=== PATIENT | female | born 1940 | race Caucasian/White ===

== ENCOUNTER 2017-06-19 11:15 | Inpatient (IN) | payer MEDICARE, MEDICAID ==
[~2017-06-19] VITALS: Ht 160 cm; Wt 55.2 kg
[~2017-06-19 11:15] MED LIST: AMLO10TA; AMLO10TA2 PO; AMOX250C3; CEFD300CAP PO; COUM2.5T17 PO; LISI20TA5; MEGA40SU; NORV5TAB; VICO5TAB; VITAMIN D50000 UNT; [UNRECOGNIZED DRUG - OTHER] IM
[2017-06-19] MEDS ORDERED: LABETALOL HCL 100 MG/20 ML VIAL IV STA ×2 (12:30→13:26)
[2017-06-19 12:50] LABS: ANION GAP 6 MEQ/L (8-16); BLOOD UREA NITROGEN 11 MG/DL (7-18); CALCIUM LEVEL 9.4 MG/DL (8.8-10.2); CARBON DIOXIDE LEVEL 30 MEQ/L (21-32); CHLORIDE LEVEL 105 MEQ/L (98-107); CREATININE FOR GFR 0.65 MG/DL (0.55-1.02); GLOMERULAR FILTRATION RATE > 60.0 (>39); GLUCOSE, FASTING 89 MG/DL (83-110); POTASSIUM SERUM 3.7 MEQ/L (3.5-5.1); SODIUM LEVEL 141 MEQ/L (136-145)
[2017-06-19 12:53] LABS: BASO % 0.5 % (0.0-1.0); EOS # 0.1 K/mm3 (0.0-0.50); LARGE UNSTAINED CELL # 0.1 K/mm3 (0.0-0.4); LARGE UNSTAINED CELL % 1.6 % (0.0-4.0); LYMPH % 23.8 % (24.0-44.0); MEAN CORPUSCULAR HEMOGLOBIN 30.3 pg (27.0-33.0); MEAN CORPUSCULAR HGB CONC 32.8 g/dl (32.0-36.5); MEAN CORPUSCULAR VOLUME 92.4 fl (80.0-96.0); MONO # 0.6 K/mm3 (0.0-0.8); MONO % 7.1 % (0.0-5.0); NEUTROPHILS # 5.2 K/mm3 (1.8-7.7); NEUTROPHILS % 65.9 % (36.0-66.0); PLATELET COUNT, AUTOMATED 218 k/mm3 (150-450); RED CELL DISTRIBUTION WIDTH 13.7 % (11.5-14.5); WHITE BLOOD COUNT 7.8 K/mm3 (4.0-10.0)
--- NOTE | 2017-06-19 12:57 | REP ---
CT Head without contrast HISTORY: Intracranial hemorrhage COMPARISON: 08/21/2015 Areas of decreased attenuation are present in the periventricular white matter. This represents small-vessel ischemic disease. There is no intraparenchymal hemorrhage, acute infarct, mass or midline shift. The ventricular system and cortical sulci as well as subarachnoid space in the posterior fossa are dilated consistent with moderate volume loss. There is no extra cerebral collection. There is no fracture. The visualized sinuses are clear. IMPRESSION: 1. Small vessel ischemic disease. 2. Moderate volume loss. Signed by Dejuan Pichardo MD 06/19/2017 12:48 P
--- NOTE | 2017-06-19 13:44 | REP ---
Chest two views HISTORY: Hypertension Comparison: 06/01/2016 The lungs are hyperinflated. A minimal increase in interstitial markings is present in the lower lobes consistent with chronic interstitial fibrosis. The heart is upper limits of normal in size. The pulmonary vasculature is normal in appearance. The bony structure is intact. IMPRESSION: Bibasilar chronic interstitial fibrosis. Signed by Dejuan Pichardo MD 06/19/2017 01:36 P
[2017-06-19] MEDS ORDERED: PATIENT COMMENT (14:03)
[2017-06-19] MEDS ORDERED: hydrALAZINE INJ 20 MG/ML VIAL IV PRN (14:30)
--- NOTE | 2017-06-19 14:56 | HPEPDOC ---
Medical History and Physical Date of Admission 06/19/17 History and Physical ATTENDING: Dr. Fernandes PCP: Vangie RIDLEY CC: sent from with hypertensive urgency HPI: 76yoF with a past medical history significant for Dementia, HTN who was taken to today by her sons who help to care for her. History is from her son as pt is not able to provide, They had taken her to request a neurology referral for her dementia and thought that would be quicker than going to PCP, which she had not seen in some time. Son states she was on BP meds in the past but had stopped them. She has not been taking any medications at home currently. Son reports that she has not had any new symptoms and has been at her longtime baseline status. Remains fortgetful of recent and immediate past but recalls distant things. Denies vision changes, dizziness, dysarthria, dysphagia, weakness UE/LEs or falls. Denies any fevers, chills, TOVAR, CP, SOB, cough, palpitations, abdominal pain, N/ V/D or changes in bowel or bladder habits. Upon presentation to the hospital the patient was found to have hypertensive urgency, thus the hospitalist team was consulted. PMHx: HTN dementia H/O lacunar infarct 08/05 H/O Left hip fracture h/o L2 fracture H/O fall/unsteady gait PSHX: B/L TIM cholecystectomy SOCHX: Resides in: [facility]. Lives with and 2 sons. Marital Status: Kids: 12 Tobacco use:denies ETOH: denies Illicit Drugs: Denies Advanced directives: none FAMHX: Children: Alive, DM ROS: Pt is not able to provide history. PE: GEN: 76yoF, appears stated age. Well-nourished, well developed. No acute distress. Alert, oriented to person but not time or place. Pleasant, responds occasionally with short answers. HEENT: Normocephalic, atraumatic. Pupils are equal, round, and reactive to light. Extraocular movements are intact. No nystagmus appreciated. Sclera are nonicteric. Conjunctiva without injection. Nose midline. Nasal turbinates without bogginess. EACs both patent BL. TMs both visualized and gaitan with good cone of light, no bulging or erythema. No facial asymmetry. Moist mucous membranes. Dentition fair. Pharynx pink and moist, no cobblestoning. Neck supple , trachea midline. No lymphadenopathy or thyromegaly appreciated. CHEST: Regular rate and rhythm, +S1, +S2. Systolic murmur noted RSB with radiation to carotids. LUNGS: Clear to auscultation bilaterally. No wheezes, rales, or rhonchi. Breathing appears symmetric and easy. Patient is speaking in full sentences. No accessory muscle use. ABD: Round, soft, non-tender, non-distended. +Bowel sounds throughout. No rebound or guarding. No costovertebral angle tenderness. EXT: Pulses 2+ bilaterally dorsalis pedis and radial. No lower extremity edema appreciated. SKIN: [place], dry, warm. No rashes. NEURO: Cranial nerves III-XII are intact. moving all 4 extremities, does not follow commands well. CXR: Bibasilar chronic interstitial fibrosis. CT: Head 1. Small vessel ischemic disease. 2. Moderate volume loss. EKG: SR, first degree AVB, LAD, LVH, STT abn, possible prior septal injury. A&P: HPI: 76yoF with a past medical history significant for Dementia, HTN who was taken to today by her sons who help to care for her. History is from her son as pt is not able to provide, They had taken her to request a neurology referral for her dementia and thought that would be quicker than going to PCP, which she had not seen in some time. Son states she was on BP meds in the past but had stopped them. She has not been taking any medications at home currently. Son reports that she has not had any new symptoms and has been at her longtime baseline status. Remains fortgetful of recent and immediate past but recalls distant things. 1. The patient will be admitted to PCU for at least [address] Fernandes's service. Pt is discussed with Dr Bill. 2. Hypertensive urgency. PCU/TM. Serial CIP/trop. Pt previously on Norvasc/ Chlorthalidone as per records. HR after labetolol 58bpm. Hold further BB. Add back Norvasc 10 mg daily with hold parameters. Add back Chlorthalidone 25 mg daily. IV Hydralazine with hold parameters. 3. Abnormal EKG. Serial CIP/Trop. PCU/TM. 4. Murmur. Request Echo. 5. Dementia. No meds as outpt. Add RPR, Vitamin B12, folate. PFS pending. 6. H/O unsteady gait/fall. PT eval pending. PFS pending. 7. chronic anemia. Baseline 9-10 with previous labs. Add Fe studies/B12/folate. DVT prophylaxis. The patient is a Full code. Vital Signs Vital Signs Date Time Temp Pulse Resp B/P (MAP) Pulse Ox O2 Delivery O2 Flow Rate FiO2 06/19/17 13:47 63 224/100 06/19/17 13:45 16 97 Room Air 06/19/17 11:22 97.1 Laboratory Data Labs 24H Laboratory Tests 2 06/19/17 11:57: White Blood Count 7.8, Red Blood Count 3.84L, Hemoglobin 11.6L, Hematocrit 35.4L , Mean Corpuscular Volume 92.4, Mean Corpuscular Hemoglobin 30.3, Mean Corpuscular Hemoglobin Concent 32.8, Red Cell Distribution Width 13.7, Platelet Count 218, Neutrophils (%) (Auto) 65.9, Lymphocytes (%) (Auto) 23.8L, Monocytes (%) (Auto) 7.1H, Eosinophils (%) (Auto) 1.0, Basophils (%) (Auto) 0.5, Neutrophils # (Auto) 5.2, Lymphocytes # (Auto) 2.0, Monocytes # (Auto) 0.6, Eosinophils # (Auto) 0.1, Basophils # (Auto) 0.0, Large Unclassified Cells % 1.6 , Large Unclassified Cells # 0.1, Anion Gap 6L, Glomerular Filtration Rate > 60.0, Blood Urea Nitrogen 11, Creatinine 0.65, Sodium Level 141, Potassium Level 3.7, Chloride Level 105, Carbon Dioxide Level 30, Calcium Level 9.4, Total Creatine Kinase 61, Creatine Kinase MB 1.7, Creatine Kinase MB Relative Index 2.78, Troponin I < 0.02 CBC/BMP Laboratory Tests 06/19/17 11:57 Red Blood Count 3.84 L, Mean Corpuscular Volume 92.4, Mean Corpuscular Hemoglobin 30.3, Mean Corpuscular Hemoglobin Concent 32.8, Red Cell Distribution Width 13.7, Neutrophils (%) (Auto) 65.9, Lymphocytes (%) (Auto) 23.8 L, Monocytes (%) (Auto) 7.1 H, Eosinophils (%) (Auto) 1.0, Basophils (%) ( Auto) 0.5, Neutrophils # (Auto) 5.2, Lymphocytes # (Auto) 2.0, Monocytes # (Auto ) 0.6, Eosinophils # (Auto) 0.1, Basophils # (Auto) 0.0, Calcium Level 9.4, Total Creatine Kinase 61 Home Medications Miscellaneous Medications [Patient Comment] UNABLE TO VERIFY ANY MEDICATIONS WITH PATIENT. NO FAMILY WITH HER AT THIS TIME, PHARMACY HAS NOTHING ON FILE FOR HER Allergies Coded Allergies: No Known Drug Allergy (Verified Allergy, Unknown, 01/24/13) GME ATTESTATION GME ATTESTATION My preceptor for this patient encounter was physically present in the building during the encounter and was fully available. As needed, all aspects of the patient interview, examination, medical decision making process, and medical care plan development were reviewed and approved by the preceptor. Preceptor is aware and concurs with the plan as stated in the body of this note and will attest to such by his/her cosignature. ATTENDING NOTE I have both independently examined this patient as well as reviewed the note. I have discussed in detail with the resident the findings and plan of treatment as documented in the note. I will continue to follow the patient and offer further guidance to the patients care as necessary during this hospital stay. Marietta Wright MD Jun 19, 2017 14:56 JOLENE BILL MD Jun 20, 2017 11:53
[2017-06-19] MEDS ORDERED: amLODIPine 5 MG TAB PO ONE (15:00)
[2017-06-19] MEDS ORDERED: CHLORTHALIDONE 12.5MG PER 1/2 TABLET PO ONE (15:00)
[2017-06-19] MEDS ORDERED: CHLORTHALIDONE 25 MG TAB PO ONE (15:00)
[2017-06-19] MEDS: CHLORTHALIDONE 25 MG TAB PO SCH (15:10)
[2017-06-19] MEDS: amLODIPine 10 MG TAB PO SCH (15:10)
[2017-06-19 15:47] LABS: FERRITIN 26 NG/ML (8-252); TOTAL IRON BINDING CAPACITY 293 UG/DL (250-450)
[2017-06-19 15:54] LABS: VITAMIN B12 LEVEL 491 PG/ML
[2017-06-19 15:55] LABS: FOLATE 16.6 NG/ML
[2017-06-19 17:28] VITALS: BP 190/74
[2017-06-19 19:50] VITALS: BP 142/78
[2017-06-20 00:26] VITALS: BP 172/80
[2017-06-20] MEDS ORDERED: SLF 3 ML SYR IV PRN (00:45)
[2017-06-20 03:56] VITALS: BP 166/89
[2017-06-20] MEDS: SLF 3 ML SYR IV SCH ×2 (04:14→13:55)
[2017-06-20 05:46] LABS: MEAN CORPUSCULAR HEMOGLOBIN 30.6 pg (27.0-33.0); MEAN CORPUSCULAR HGB CONC 33.2 g/dl (32.0-36.5); MEAN CORPUSCULAR VOLUME 92.2 fl (80.0-96.0); RED CELL DISTRIBUTION WIDTH 13.7 % (11.5-14.5); WHITE BLOOD COUNT 7.1 K/mm3 (4.0-10.0)
[2017-06-20 06:02] LABS: ALBUMIN 3.2 GM/DL (3.2-5.2); ALBUMIN/GLOBULIN RATIO 0.82 (1.00-1.93); ALKALINE PHOSPHATASE 93 U/L (45-117); ALT/SGPT 12 U/L (12-78); ANION GAP 9 MEQ/L (8-16); AST/SGOT 13 U/L (15-37); BILIRUBIN,TOTAL 0.4 MG/DL (0.2-1.0); BLOOD UREA NITROGEN 12 MG/DL (7-18); CALCIUM LEVEL 8.4 MG/DL (8.8-10.2); CARBON DIOXIDE LEVEL 28 MEQ/L (21-32); CHLORIDE LEVEL 105 MEQ/L (98-107); CREATININE FOR GFR 0.62 MG/DL (0.55-1.02); GLOMERULAR FILTRATION RATE > 60.0 (>39); GLUCOSE, FASTING 105 MG/DL (83-110); POTASSIUM SERUM 3.5 MEQ/L (3.5-5.1); SODIUM LEVEL 142 MEQ/L (136-145); TOTAL PROTEIN 7.1 GM/DL (6.4-8.2)
[2017-06-20 07:30] VITALS: BP 164/78
[2017-06-20] MEDS: amLODIPine 10 MG TAB PO SCH (09:48)
[2017-06-20] MEDS: CHLORTHALIDONE 25 MG TAB PO SCH (09:48)
--- NOTE | 2017-06-20 10:25 | IPNPDOC ---
Subjective Date Seen The patient was seen on 06/20/17. Subjective Chief Complaint/HPI The patient is a 76-year-old female admitted with a reason for visit of Hypertensive Urgency. Events since last encounter Patient without complaints - poor historian due to advanced dementia Constitutional: Denies: Chills, Fever Pulmonary: Denies: Dyspnea, Cough Cardiovascular: Denies: Chest Pain, Palpitations Gastrointestinal: Denies: Nausea, Vomiting, Abdominal Pain, Diarrhea, Constipation Objective Physical Examination General Exam: Positive: Alert (confused), No Acute Distress Chest Exam: Positive: Clear to auscultation, Normal air movement Heart Exam: Positive: Rate Normal, Regular Rhythm, Murmurs (PHILLY radiating to carotids) Abdomen Exam: Positive: Normal bowel sounds, Soft, Negative: Tenderness Assessment /Plan Problems (1) Hypertensive urgency Status: Acute Response to Treatment: Improving Problem Text: BP improving with Norvasc 10 mg daily , Chlorthalidone 25 mg daily and Hydralazine IV prn SBP > 180 HR in 70s s/p Lopressor IV on admission. Start Metoprolol 25 q 6H with hold parameters (2) Dementia Status: Chronic Response to Treatment: Stable Problem Text: Patient was seen in 10/2015 with normal thyroid, RPR and B12 at that time. MRI ordered then, but never done and patient never followed up in office again CT here showed small vessel disease and age related volume loss (3) Murmur, cardiac Status: Chronic Problem Text: Echo ordered 10/2015 but never done Re-ordered here - sounds like aortic stenosis Plan/VTE VTE Prophylaxis Ordered?: Yes (start Heparin SQ) Plan Therapy: PT, OT Disposition I discussed with PFS my concerns regarding her dispo plan - she was apparently living with son and at home, but son did not bring her back to my office for f/u since 10/2015 and has not been giving her BP meds therefore causing her hypertensive urgency - this is the second time this has occured. VS, I&O, 24H, Fishbone Vital Signs/I&O Vital Signs Date Time Temp Pulse Resp B/P (MAP) Pulse Ox O2 Delivery O2 Flow Rate FiO2 06/20/17 09:48 72 164/78 06/20/17 07:30 97.6 20 96 Room Air I&O- Last 24 Hours up to 6 AM 06/20/17 06:00 Intake Total 300 ml Output Total 775 ml Balance -475 ml Laboratory Data 24H LABS Laboratory Tests 2 06/19/17 11:57: White Blood Count 7.8, Red Blood Count 3.84L, Hemoglobin 11.6L, Hematocrit 35.4L , Mean Corpuscular Volume 92.4, Mean Corpuscular Hemoglobin 30.3, Mean Corpuscular Hemoglobin Concent 32.8, Red Cell Distribution Width 13.7, Platelet Count 218, Neutrophils (%) (Auto) 65.9, Lymphocytes (%) (Auto) 23.8L, Monocytes (%) (Auto) 7.1H, Eosinophils (%) (Auto) 1.0, Basophils (%) (Auto) 0.5, Neutrophils # (Auto) 5.2, Lymphocytes # (Auto) 2.0, Monocytes # (Auto) 0.6, Eosinophils # (Auto) 0.1, Basophils # (Auto) 0.0, Large Unclassified Cells % 1.6 , Large Unclassified Cells # 0.1, Anion Gap 6L, Glomerular Filtration Rate > 60.0, Blood Urea Nitrogen 11, Creatinine 0.65, Sodium Level 141, Potassium Level 3.7, Chloride Level 105, Carbon Dioxide Level 30, Calcium Level 9.4, Total Creatine Kinase 61, Iron Level 41L, Total Iron Binding Capacity 293, Transferrin % Saturation 14.0, Ferritin 26, Creatine Kinase MB 1.7, Creatine Kinase MB Relative Index 2.78, Troponin I < 0.02, Vitamin B12 Level 491, Folate 16.6, Thyroid Stimulating Hormone (TSH) 1.930 06/19/17 15:36: Urine Appearance CLEAR, Urine Color YELLOW, Urine pH 7.0, Urine Specific [place] 1.006, Urine Protein NEGATIVE, Urine Glucose (UA) NEGATIVE, Urine Ketones NEGATIVE, Urine Urobilinogen 0.2, Urine Bilirubin NEGATIVE, Urine Leukocyte Esterase NEGATIVE, Urine Blood 1+H, Urine Nitrite NEGATIVE, Urine WBC (Auto) 3, Urine RBC (Auto) 3, Urine Hyaline Casts (Auto) 0, Urine Bacteria (Auto ) NEGATIVE, Urine Squamous Epithelial Cells 1, Urine Mucus (Auto) SMALL, Urine Sperm (Auto) 06/19/17 18:00: Total Creatine Kinase 70, Creatine Kinase MB 1.6, Creatine Kinase MB Relative Index 2.28, Troponin I < 0.02 06/20/17 02:08: Total Creatine Kinase 93, Creatine Kinase MB 1.8, Creatine Kinase MB Relative Index 1.93, Troponin I < 0.02 06/20/17 04:41: Anion Gap 9, Glomerular Filtration Rate > 60.0, Blood Urea Nitrogen 12, Creatinine 0.62, Sodium Level 142, Potassium Level 3.5, Chloride Level 105, Carbon Dioxide Level 28, Calcium Level 8.4L, Aspartate Amino Transf (AST/SGOT) 13L, Alanine Aminotransferase (ALT/SGPT) 12, Alkaline Phosphatase 93, Total Bilirubin 0.4, Total Protein 7.1, Albumin 3.2, Albumin/Globulin Ratio 0.82L 06/20/17 09:51: CBC/BMP Laboratory Tests 06/19/17 11:57 Red Blood Count 3.84 L, Mean Corpuscular Volume 92.4, Mean Corpuscular Hemoglobin 30.3, Mean Corpuscular Hemoglobin Concent 32.8, Red Cell Distribution Width 13.7, Neutrophils (%) (Auto) 65.9, Lymphocytes (%) (Auto) 23.8 L, Monocytes (%) (Auto) 7.1 H, Eosinophils (%) (Auto) 1.0, Basophils (%) ( Auto) 0.5, Neutrophils # (Auto) 5.2, Lymphocytes # (Auto) 2.0, Monocytes # (Auto ) 0.6, Eosinophils # (Auto) 0.1, Basophils # (Auto) 0.0, Calcium Level 9.4, Total Creatine Kinase 61 06/20/17 04:41 Red Blood Count 3.73 L, Mean Corpuscular Volume 92.2, Mean Corpuscular Hemoglobin 30.6, Mean Corpuscular Hemoglobin Concent 33.2, Red Cell Distribution Width 13.7, Calcium Level 8.4 L, Aspartate Amino Transf (AST/SGOT) 13 L, Alanine Aminotransferase (ALT/SGPT) 12, Alkaline Phosphatase 93, Total Bilirubin 0.4, Total Protein 7.1, Albumin 3.2 Microbiology Microbiology 06/19/17 Urine Culture - Final, Complete NELSON TAYLOR PA-C Jun 20, 2017 10:25
[2017-06-20 12:00] VITALS: BP 180/82
[2017-06-20] MEDS: METOPROLOL TART 25 MG TABLET PO SCH ×2 (12:11→17:22)
[2017-06-20 16:00] VITALS: BP 179/81
[2017-06-20 19:58] VITALS: BP 175/77
--- NOTE | 2017-06-20 23:08 | ECHO ---
DATE OF PROCEDURE: 06/20/2017 REFERRING PHYSICIAN: Alexandra Posadas MD INDICATION: Heart murmur. HEIGHT: 160 cm WEIGHT: 64 kg 2D MEASUREMENTS: Left atrium: 3.6 cm Aortic root: 3.0 cm Ventricular septum: 1.21 cm Posterior wall: 1.16 cm Left ventricle diastole: 3.7 cm LVOT: 2.3 cm Inferior vena cava: 1.1 cm DOPPLER MEASUREMENTS: Trace aortic regurgitation. No aortic stenosis. Aortic valve velocity: 233 cm/s LVOT velocity: 140 cm/s LVOT VTI: 28.0 cm Very mild mitral regurgitation. Mitral E velocity: 55.3 cm/s Mitral A velocity: 100 cm/s MITRAL ANNULAR TISSUE DOPPLER: E prime septal: 3.8 cm/s E prime lateral: 5.4 cm/s Pulmonary arterial systolic pressure 36 mmHg by pulmonary acceleration time method. DESCRIPTION: Rhythm was sinus tachycardia. Image quality was fair. No pericardial effusion. Images were obtained from the supine position. This is a 2D, M-mode, color flow Doppler and pulse wave Doppler examination that included mitral annular tissue Doppler. CONCLUSIONS: 1. 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 No aortic stenosis. Trace aortic regurgitation. 2. Normal left ventricle size and systolic function. Left ventricle (LV) wall thickness is near or at the upper limits normal. No regional LV wall motion abnormalities. Normal LV systolic function. Left ventricular ejection fraction (LVEF) 70% by visual estimate. Grade 1 LV diastolic dysfunction (impaired relaxation filling pattern). 3. 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 4. Suggestive of mild elevation of pulmonary artery systolic pressure.
[2017-06-21 00:03] VITALS: BP 140/80
[2017-06-21] MEDS: METOPROLOL TART 25 MG TABLET PO SCH ×2 (00:18→05:51)
[2017-06-21] MEDS: SLF 3 ML SYR IV SCH ×2 (00:18→05:51)
[2017-06-21 05:56] LABS: MEAN CORPUSCULAR HEMOGLOBIN 30.8 pg (27.0-33.0); MEAN CORPUSCULAR HGB CONC 33.4 g/dl (32.0-36.5); MEAN CORPUSCULAR VOLUME 92.4 fl (80.0-96.0); RED CELL DISTRIBUTION WIDTH 13.4 % (11.5-14.5); WHITE BLOOD COUNT 9.6 K/mm3 (4.0-10.0)
[2017-06-21 06:24] LABS: ALBUMIN 3.4 GM/DL (3.2-5.2); ALBUMIN/GLOBULIN RATIO 0.83 (1.00-1.93); ALKALINE PHOSPHATASE 96 U/L (45-117); ALT/SGPT 18 U/L (12-78); ANION GAP 9 MEQ/L (8-16); AST/SGOT 19 U/L (15-37); BILIRUBIN,TOTAL 0.5 MG/DL (0.2-1.0); BLOOD UREA NITROGEN 20 MG/DL (7-18); CALCIUM LEVEL 8.6 MG/DL (8.8-10.2); CARBON DIOXIDE LEVEL 29 MEQ/L (21-32); CHLORIDE LEVEL 100 MEQ/L (98-107); CREATININE FOR GFR 0.76 MG/DL (0.55-1.02); GLOMERULAR FILTRATION RATE > 60.0 (>39); GLUCOSE, FASTING 99 MG/DL (83-110); POTASSIUM SERUM 3.5 MEQ/L (3.5-5.1); SODIUM LEVEL 138 MEQ/L (136-145); TOTAL PROTEIN 7.5 GM/DL (6.4-8.2)
--- NOTE | 2017-06-21 08:55 | ECGEPIP ---
Stationary ECG Study [facility] - ED Test Date: 2017-06-19 Pat Name: ABAD CACERES Department: Room: - Gender: F Tile Mason: rn : 1940 Requested By: PRIYA Escobedo Order Number: [id number] Reading MD: Cheryle Luna Measurements Intervals [place] Cbc Base Rate: 73 P: 75 WI: 215 QRS: -39 QRSD: 91 T: 85 QT: 386 QTc: 428 Interpretive Statements SINUS RHYTHM WITH FIRST DEGREE AV BLOCK MARKED LEFT AXIS DEVIATION LEFT VENTRICULAR HYPERTROPHY AND ST-T CHANGE POSSIBLE SEPTAL MYOCARDIAL INFARCTION, OF INDETERMINATE AGE DECREASED RATE 06/01/16 Electronically Signed On 06-21-2017 8:55:41 EDT by Cheryle Luna
[2017-06-21] MEDS: CHLORTHALIDONE 25 MG TAB PO SCH (08:58)
[2017-06-21] MEDS: amLODIPine 10 MG TAB PO SCH (08:59)
--- NOTE | 2017-06-21 10:33 | IPNPDOC ---
Subjective Date Seen The patient was seen on 06/21/17. Subjective Chief Complaint/HPI The patient is a 76-year-old female admitted with a reason for visit of Hypertensive Urgency. Events since last encounter Per nursing, no issues or concerns Constitutional: Denies: Chills, Fever Pulmonary: Denies: Dyspnea Cardiovascular: Denies: Chest Pain Gastrointestinal: Denies: Nausea, Vomiting, Abdominal Pain, Diarrhea, Constipation Objective Physical Examination General Exam: Positive: Alert (confused), No Acute Distress Chest Exam: Positive: Clear to auscultation, Normal air movement Heart Exam: Positive: Rate Normal, Regular Rhythm, Murmurs (PHILLY radiating to carotids) Abdomen Exam: Positive: Normal bowel sounds, Soft, Negative: Tenderness Neuro Exam: Positive: Other (Face is symmetric and expressive. Slight ? pill- rolling tremor on left hand with cogwheeling. Gait is normal without shuffling) Assessment /Plan Problems (1) Hypertensive urgency Status: Acute Response to Treatment: Improving Problem Text: BP improving with Norvasc 10 mg daily , Chlorthalidone 25 mg daily, Metoprolol 25 q 6h Echo with mild LVH without dilatation, EF 70%. Moderate aortic sclerosis without stenosis Switch Metoprolol to Lisinopril (2) Dementia Status: Chronic Response to Treatment: Stable Problem Text: Patient was seen in 10/2015 with normal thyroid, RPR and B12 at that time. MRI ordered then, but never done and patient never followed up in office again CT here showed small vessel disease and age related volume loss May have some Parkinson's based on slight pill rolling and cogwheeling, but apparently ambulates without difficulty (3) Murmur, cardiac Status: Chronic Problem Text: Echo ordered 10/2015 but never done Re-ordered here - showed aortic sclerosis without stenosis Plan/VTE VTE Prophylaxis Ordered?: Yes (start Heparin SQ) Plan Therapy: PT, OT Disposition SNF in am VS, I&O, 24H, Fishbone Vital Signs/I&O Vital Signs Date Time Temp Pulse Resp B/P (MAP) Pulse Ox O2 Delivery O2 Flow Rate FiO2 06/21/17 08:59 69 153/70 06/21/17 02:05 Room Air 06/21/17 00:03 99.0 18 97 I&O- Last 24 Hours up to 6 AM 06/21/17 06:00 Intake Total 750 ml Output Total 400 ml Balance 350 ml Laboratory Data 24H LABS Laboratory Tests 2 8/31/17 05:35: Anion Gap 9, Glomerular Filtration Rate > 60.0, Blood Urea Nitrogen 20#H, Creatinine 0.76, Sodium Level 138, Potassium Level 3.5, Chloride Level 100, Carbon Dioxide Level 29, Calcium Level 8.6L, Aspartate Amino Transf (AST/SGOT) 19, Alanine Aminotransferase (ALT/SGPT) 18, Alkaline Phosphatase 96, Total Bilirubin 0.5, Total Protein 7.5, Albumin 3.4, Albumin/Globulin Ratio 0.83L CBC/BMP Laboratory Tests 06/21/17 05:35 Red Blood Count 3.95 L, Mean Corpuscular Volume 92.4, Mean Corpuscular Hemoglobin 30.8, Mean Corpuscular Hemoglobin Concent 33.4, Red Cell Distribution Width 13.4, Calcium Level 8.6 L, Aspartate Amino Transf (AST/SGOT) 19, Alanine Aminotransferase (ALT/SGPT) 18, Alkaline Phosphatase 96, Total Bilirubin 0.5, Total Protein 7.5, Albumin 3.4 Microbiology Microbiology 06/19/17 Urine Culture - Final, Complete NELSON TAYLOR PA-C Jun 21, 2017 10:33
[2017-06-21] MEDS: LISINOPRIL 20 MG TAB PO SCH (11:17)
[2017-06-21 22:00] VITALS: BP 144/66
[2017-06-22 06:00] VITALS: BP 155/70
[2017-06-22] MEDS: CHLORTHALIDONE 25 MG TAB PO SCH (08:12)
[2017-06-22] MEDS: amLODIPine 10 MG TAB PO SCH (08:12)
[2017-06-22] MEDS: LISINOPRIL 20 MG TAB PO SCH (08:12)
[2017-06-22] MEDS: ENOXAPARIN 40 MG/0.4 ML SYRINGE (J1650) SC SCH (08:13)
[2017-06-22 14:00] VITALS: BP 136/64
[2017-06-22 22:00] VITALS: BP 135/64
[2017-06-23 06:00] VITALS: BP 152/67
[2017-06-23] MEDS: ENOXAPARIN 40 MG/0.4 ML SYRINGE (J1650) SC SCH (10:01)
[2017-06-23] MEDS: CHLORTHALIDONE 25 MG TAB PO SCH (10:02)
[2017-06-23] MEDS: amLODIPine 10 MG TAB PO SCH (10:02)
[2017-06-23] MEDS: LISINOPRIL 20 MG TAB PO SCH (10:03)
[2017-06-23 22:00] VITALS: BP 150/78
[2017-06-24 06:00] VITALS: BP 160/72
[2017-06-24] MEDS: LISINOPRIL 20 MG TAB PO SCH (09:14)
[2017-06-24] MEDS: amLODIPine 10 MG TAB PO SCH (09:15)
[2017-06-24] MEDS: CHLORTHALIDONE 25 MG TAB PO SCH (09:15)
[2017-06-24] MEDS: ENOXAPARIN 40 MG/0.4 ML SYRINGE (J1650) SC SCH (09:15)
[2017-06-25 06:00] VITALS: BP 150/74
[2017-06-25] MEDS: ENOXAPARIN 40 MG/0.4 ML SYRINGE (J1650) SC SCH (10:13)
[2017-06-25] MEDS: CHLORTHALIDONE 25 MG TAB PO SCH (10:13)
[2017-06-25] MEDS: amLODIPine 10 MG TAB PO SCH (10:14)
[2017-06-25] MEDS: LISINOPRIL 20 MG TAB PO SCH (10:14)
[2017-06-26 06:00] VITALS: BP 142/78
[2017-06-26] MEDS: ENOXAPARIN 40 MG/0.4 ML SYRINGE (J1650) SC SCH (08:53)
[2017-06-26] MEDS: amLODIPine 10 MG TAB PO SCH (08:54)
[2017-06-26] MEDS: LISINOPRIL 20 MG TAB PO SCH (08:54)
[2017-06-26] MEDS: CHLORTHALIDONE 25 MG TAB PO SCH (08:54)
[2017-06-27 06:00] VITALS: BP 155/69
[2017-06-27] MEDS: LISINOPRIL 20 MG TAB PO SCH (09:38)
[2017-06-27] MEDS: CHLORTHALIDONE 25 MG TAB PO SCH (09:38)
[2017-06-27] MEDS: ENOXAPARIN 40 MG/0.4 ML SYRINGE (J1650) SC SCH (09:39)
[2017-06-27] MEDS: amLODIPine 10 MG TAB PO SCH (09:42)
[2017-06-27 14:00] VITALS: BP 138/65
[2017-06-28 06:00] VITALS: BP 141/74
[2017-06-28] MEDS: amLODIPine 10 MG TAB PO SCH (08:23)
[2017-06-28] MEDS: ENOXAPARIN 40 MG/0.4 ML SYRINGE (J1650) SC SCH (08:23)
[2017-06-28] MEDS: LISINOPRIL 20 MG TAB PO SCH (08:23)
[2017-06-28] MEDS: CHLORTHALIDONE 25 MG TAB PO SCH (08:23)
[2017-06-29 06:00] VITALS: BP 132/88
[2017-06-29] MEDS: amLODIPine 10 MG TAB PO SCH (09:09)
[2017-06-29] MEDS: CHLORTHALIDONE 25 MG TAB PO SCH (09:09)
[2017-06-29] MEDS: LISINOPRIL 20 MG TAB PO SCH (09:09)
[2017-06-29] MEDS: ENOXAPARIN 40 MG/0.4 ML SYRINGE (J1650) SC SCH (09:10)
--- NOTE | 2017-06-29 11:09 | IPNPDOC ---
Subjective Date Seen The patient was seen on 06/29/17. Subjective Chief Complaint/HPI The patient is a 76-year-old female admitted with a reason for visit of Hypertensive Urgency. Events since last encounter No new issues or concerns per nursing Constitutional: Denies: Chills, Fever Pulmonary: Denies: Dyspnea Cardiovascular: Denies: Chest Pain Gastrointestinal: Denies: Nausea, Vomiting, Abdominal Pain, Diarrhea, Constipation Objective Physical Examination General Exam: Positive: Alert (confused - trying to stand up in chair and pull off chair sensor), No Acute Distress Chest Exam: Positive: Clear to auscultation, Normal air movement Heart Exam: Positive: Rate Normal, Regular Rhythm, Murmurs (PHILLY radiating to carotids) Abdomen Exam: Positive: Normal bowel sounds, Soft, Negative: Tenderness Neuro Exam: Positive: Other (Face is symmetric and expressive. Slight ? pill- rolling tremor on left hand with cogwheeling. Gait is normal without shuffling) Assessment /Plan Problems (1) Hypertensive urgency Status: Resolved Response to Treatment: Improving Problem Text: 06/29 - BP stable on current regimen Norvasc 10 mg daily , Chlorthalidone 25 mg daily, Lisinopril 20 mg daily Echo with mild LVH without dilatation, EF 70%. Moderate aortic sclerosis without stenosis (2) Dementia Status: Chronic Response to Treatment: Stable Problem Text: Patient was seen in 10/2015 with normal thyroid, RPR and B12 at that time. MRI ordered then, but never done and patient never followed up in office again CT here showed small vessel disease and age related volume loss May have some Parkinson's based on slight pill rolling and cogwheeling, but apparently ambulates without difficulty (3) Murmur, cardiac Status: Chronic Problem Text: Echo ordered 10/2015 but never done Re-ordered here - showed aortic sclerosis without stenosis Plan/VTE VTE Prophylaxis Ordered?: Yes (start Heparin SQ) Plan Therapy: PT, OT Family Medicine Attending Note: I saw and examined Ms. Fritz, discussed with KACY Johnson. Agree with their note as documented. 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
[2017-06-29 12:39] LABS: ANION GAP 9 MEQ/L (8-16); BLOOD UREA NITROGEN 41 MG/DL (7-18); CALCIUM LEVEL 8.8 MG/DL (8.8-10.2); CARBON DIOXIDE LEVEL 29 MEQ/L (21-32); CHLORIDE LEVEL 99 MEQ/L (98-107); CREATININE FOR GFR 0.94 MG/DL (0.55-1.02); GLOMERULAR FILTRATION RATE > 60.0 (>39); GLUCOSE, FASTING 222 MG/DL (83-110); POTASSIUM SERUM 4.1 MEQ/L (3.5-5.1); SODIUM LEVEL 137 MEQ/L (136-145)
[2017-06-30 06:00] VITALS: BP 157/70
[2017-06-30] MEDS: CHLORTHALIDONE 25 MG TAB PO SCH (09:39)
[2017-06-30] MEDS: LISINOPRIL 20 MG TAB PO SCH (09:39)
[2017-06-30] MEDS: ENOXAPARIN 40 MG/0.4 ML SYRINGE (J1650) SC SCH (09:39)
[2017-06-30] MEDS: amLODIPine 10 MG TAB PO SCH (09:40)
[2017-07-01 06:00] VITALS: BP 163/77
[2017-07-01] MEDS: ENOXAPARIN 40 MG/0.4 ML SYRINGE (J1650) SC SCH (09:00)
[2017-07-01] MEDS: CHLORTHALIDONE 25 MG TAB PO SCH (09:00)
[2017-07-01] MEDS: LISINOPRIL 20 MG TAB PO SCH (09:00)
[2017-07-01] MEDS: amLODIPine 10 MG TAB PO SCH (09:01)
[2017-07-02 05:20] VITALS: BP 135/66
[2017-07-02] MEDS: CHLORTHALIDONE 25 MG TAB PO SCH (09:18)
[2017-07-02] MEDS: amLODIPine 10 MG TAB PO SCH (09:18)
[2017-07-02] MEDS: LISINOPRIL 20 MG TAB PO SCH (09:18)
[2017-07-02] MEDS: ENOXAPARIN 40 MG/0.4 ML SYRINGE (J1650) SC SCH (09:24)
[2017-07-03 05:10] VITALS: BP 146/67
[2017-07-03] MEDS: amLODIPine 10 MG TAB PO SCH (08:45)
[2017-07-03] MEDS: LISINOPRIL 20 MG TAB PO SCH (08:45)
[2017-07-03] MEDS: ENOXAPARIN 40 MG/0.4 ML SYRINGE (J1650) SC SCH (08:45)
[2017-07-03] MEDS: CHLORTHALIDONE 25 MG TAB PO SCH (08:45)
[2017-07-04] MEDS: CHLORTHALIDONE 25 MG TAB PO SCH (09:06)
[2017-07-04 09:07] VITALS: BP 151/70
[2017-07-04] MEDS: LISINOPRIL 20 MG TAB PO SCH (09:07)
[2017-07-04] MEDS: amLODIPine 10 MG TAB PO SCH (09:07)
[2017-07-04] MEDS: ENOXAPARIN 40 MG/0.4 ML SYRINGE (J1650) SC SCH (09:07)
[2017-07-04] MEDS ORDERED: CHLO25TA PO (09:49)
[2017-07-04] MEDS ORDERED: AMLO10TA2 PO (09:49)
--- NOTE | 2017-07-04 13:08 | DSES ---
DATE OF ADMISSION: 06/19/2017 DATE OF DISCHARGE: 07/04/2017 ATTENDING PHYSICIAN: Dr. Olivia Nunes PRIMARY CARE PROVIDER: KEYANA Johnson HISTORY OF PRESENT ILLNESS: 76-year-old female with a past medical history significant for dementia and hypertension, who was taken to an urgent care on the day of presentation by her son stating that her dementia was continuing to progress and that she was not taking her blood pressure medications. The patient was found to have hypertensive urgency. She was placed in progressive care unit (PCU) for monitoring and admitted to family medicine service. HOSPITAL COURSE: The patient had an echocardiogram completed on 06/19/2017, which notes moderate aortic valve sclerosis, ejection fraction of 70% was noted, atheroma seen in the abdominal aorta, mild elevation of pulmonary artery systolic pressure. Other imaging includes CT of the brain, which proves small vessel ischemic loss and moderate volume loss. Urine culture was obtained, which was negative. The patient was placed on amlodipine and chlorthalidone, which has improved the patient's pressure significantly. It was deemed by physical therapy (PT) and medical providers that the patient was unsafe to go home without 24 hour care. She remained in the facility until the family could arrange care and bring her sons in to show them appropriate equipment and positioning to assist her with her needs at home. This was completed yesterday on 07/03/2017. PHYSICAL EXAMINATION: VITAL SIGNS: Stable . She is afebrile. HEENT: Neck is supple without lymphadenopathy or jugular venous distention (JVD ) . CARDIOVASCULAR: Heart rate and rhythm are regular. PULMONARY: Lungs are clear. ABDOMEN: Soft and nontender. NEUROLOGIC: The patient is alert to self only, has very limited response and when she does respond her conversation is inappropriate and incongruent. ASSESSMENT: 1. Hypertensive urgency, which has resolved. 2. Progressive dementia. PLAN: The patient will be discharged home. Diet is 2 gram sodium. Activity is as tolerated. MEDICATIONS: Include: - amlodipine 10 mg one daily - chlorthalidone 25 mg daily She is to followup with her primary care provider, Tami Fernandes, within the next 5 to 7 days or sooner as needed. The patient is discharged in stable and satisfactory condition with no further questions at the time of discharge. [facility]
== END 2017-07-04 13:56 | disposition home health service (06) | DRG 305 ==
LOC: M ED 11:15 → M ED INP 15:57 → M PCU 17:28 → M MSPAV 06-21 01:49 → UNDODISIN 06-28 21:36
PROVIDERS: ADMIT Hospitalist; ATTEND Family Medicine
DX: I16.0 Hypertensive urgency (principal); F03.90 Unspecified dementia, unspecified severity, without behavioral disturbance, psychotic disturbance, mood disturbance, and anxiety; I10 Essential (primary) hypertension; R26.81 Unsteadiness on feet; R94.31 Abnormal electrocardiogram [ECG] [EKG]; R01.1 Cardiac murmur, unspecified; Z79.899 Other long term (current) drug therapy; Z86.73 Personal history of transient ischemic attack (TIA), and cerebral infarction without residual deficits; Z91.81 History of falling; Z90.49 Acquired absence of other specified parts of digestive tract

== ENCOUNTER 2017-08-07 05:04 | Emergency (ER) | payer MEDICARE ==
[~2017-08-07] VITALS: Ht 160 cm; Wt 74.5 kg
[~2017-08-07 05:04] MED LIST changes: +CHLO25TA PO; +PATIENT COMMENT
[2017-08-07 05:38] LABS: BASO % 0.2 % (0.0-1.0); EOS # 0.1 10^3/uL (0.0-0.50); EOS % 0.4 % (0.0-3.0); IMMATURE GRANULOCYTE % 0.4 % (0-0); LYMPH # 1.4 10^3/uL (1.5-4.5); LYMPH % 11.4 % (24.0-44.0); MEAN CORPUSCULAR HEMOGLOBIN 30.4 pg (27.0-33.0); MEAN CORPUSCULAR HGB CONC 33.5 g/dl (32.0-36.5); MEAN CORPUSCULAR VOLUME 90.5 fl (80.0-96.0); MONO # 0.7 10^3/uL (0.0-0.8); MONO % 6.1 % (0.0-5.0); NEUTROPHILS # 9.9 10^3/uL (1.8-7.7); NEUTROPHILS % 81.5 % (36.0-66.0); PLATELET COUNT, AUTOMATED 199 10^3/uL (150-450); WHITE BLOOD COUNT 12.2 10^3/uL (4.0-10.0)
[2017-08-07] MEDS ORDERED: MORPHINE 2 MG/ML 1ML SYRINGE IV ONE (05:45)
[2017-08-07 05:49] LABS: INR 0.98
[2017-08-07 06:09] LABS: ANION GAP 4 MEQ/L (8-16); BLOOD UREA NITROGEN 17 MG/DL (7-18); CALCIUM LEVEL 8.8 MG/DL (8.8-10.2); CARBON DIOXIDE LEVEL 31 MEQ/L (21-32); CHLORIDE LEVEL 105 MEQ/L (98-107); CREATININE FOR GFR 0.62 MG/DL (0.55-1.02); GLOMERULAR FILTRATION RATE > 60.0 (>39); GLUCOSE, FASTING 134 MG/DL (83-110); POTASSIUM SERUM 3.6 MEQ/L (3.5-5.1); SODIUM LEVEL 140 MEQ/L (136-145)
[2017-08-07] MEDS ORDERED: MORPHINE 4 MG/ML 1ML SYRINGE IV ONE (07:00)
--- NOTE | 2017-08-07 07:00 | REPUSA ---
CLINICAL HISTORY: Trauma. TECHNIQUE: Multiple axial CT images were obtained through the brain without IV contrast material. COMMENTS: There is normal configuration of sella turcica. There are no intra or extra-axial collections. There is no mass effect or midline shift. There is no evidence of hematoma formation. No hydrocephalus is p resent. The ventricles are symmetrical. No abnormal calcifications are present. There is diffuse age-appropriate cerebellar and cerebral atrophy with proportionally dilated ventricl es and cortical sulci. There are bilateral periventricular and subcortical white matter hypolucencies compatible with mild c hronic microvascular disease. Otherwise, no significant focal abnormalities are seen either in the posterior fossa or supratentoria l compartment. IMPRESSION: 1. Age-appropriate cerebellar and cerebral atrophy. 2. Mild chronic microvascular disease. 3. No evidence of acute intracranial pathology. No change from 06/19/2017. Thank you for your kind referral of this patient.
--- NOTE | 2017-08-07 07:10 | REPUSA ---
CLINICAL HISTORY: Neck pain. TECHNIQUE: Multiple axial images were obtained through the cervical spine. Images were also reconstru cted in coronal and sagittal planes. The study was performed without IV contrast. COMMENTS: There is no fracture or spondylolisthesis visualized. The paraspinal soft tissues are unremarkable. T here are no lytic or blastic lesions. Straightening of cervical lordosis is seen, suggesting muscular spasm. There is evidence of moderate multilevel disk disease, demonstrated by osteophytosis and endplate sclerosis. Moderate multilevel degenerative disc disease. IMPRESSION: 1. No fracture or spondylolisthesis. 2. Straightening of cervical lordosis is seen, suggesting muscular spasm. 3. Multilevel spondylosis. Thank you for your kind referral of this patient.
[2017-08-07] MEDS ORDERED: NS 1,000 ML IV SCH (07:11)
[2017-08-07 08:38] VITALS: BP 189/76
--- NOTE | 2017-08-07 09:12 | ECGEPIP ---
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
--- NOTE | 2017-08-07 09:14 | REP ---
PELVIS AND BILATERAL HIPS: AP view of the pelvis and AP and lateral views of bilateral hips are performed. Evaluation of the sacrum is limited due to overlying bowel gas. There are bilateral metallic prostheses in the proximal femurs. Tendinous calcifications are seen above the greater trochanters bilaterally. There is a nondisplaced fracture of the proximal right femur just below the trochanters. No other acute fracture or dislocation is seen of the visualized osseous structures. IMPRESSION: Nondisplaced fracture proximal right femur. Signed by Raulito Hernandez MD 08/07/2017 07:57 P
--- NOTE | 2017-08-07 09:15 | REP ---
BILATERAL FEMURS: AP and lateral views of bilateral femurs performed. There are bilateral metallic prostheses in the proximal femurs. Nondisplaced oblique fracture is seen of the proximal right femur adjacent to the stem of the prosthesis just below the level of the trochanters. No other acute fracture or dislocation is seen. There are tendinous calcifications above the greater trochanters bilaterally. IMPRESSION: Nondisplaced fracture proximal right femur. Signed by Raulito Hernandez MD 08/07/2017 07:57 P
--- NOTE | 2017-08-07 09:15 | REP ---
CHEST, TWO VIEWS: COMPARISON: 06/19/2017. There is no evidence of acute infiltrate. No pleural effusion is seen. The heart is normal in size. The mediastinal silhouette is unremarkable. The visualized osseous structures are intact. IMPRESSION: No acute pulmonary disease. Signed by Raulito Hernandez MD 08/07/2017 07:57 P
== END 2017-08-07 08:45 | disposition short-term general hospital (02) ==
LOC: EDBD 05:04 → M ED 05:04
DX: T85.898A Other specified complication of other internal prosthetic devices, implants and grafts, initial encounter (principal); W18.30XA Fall on same level, unspecified, initial encounter; Y92.012 Bathroom of single-family (private) house as the place of occurrence of the external cause; Y99.9 Unspecified external cause status; Y93.9 Activity, unspecified; I10 Essential (primary) hypertension; F03.90 Unspecified dementia, unspecified severity, without behavioral disturbance, psychotic disturbance, mood disturbance, and anxiety; Z86.73 Personal history of transient ischemic attack (TIA), and cerebral infarction without residual deficits; Z79.899 Other long term (current) drug therapy

== ENCOUNTER → 2018-06-11 | Outpatient (REF) | payer MEDICARE ==
[2018-06-11 19:54] LABS: HEMATOCRIT 37.4 % (36.0-47.0); MEAN CORPUSCULAR HEMOGLOBIN 30.2 pg (27.0-33.0); MEAN CORPUSCULAR HGB CONC 32.1 g/dl (32.0-36.5); MEAN CORPUSCULAR VOLUME 94.2 fl (80.0-96.0); PLATELET COUNT, AUTOMATED 230 10^3/uL (150-450); RED BLOOD COUNT 3.97 10^6/uL (4.00-5.40); RED CELL DISTRIBUTION WIDTH 13.8 % (11.5-14.5); WHITE BLOOD COUNT 7.7 10^3/uL (4.0-10.0)
[2018-06-11 20:07] LABS: ALBUMIN 3.7 GM/DL (3.2-5.2); ALBUMIN/GLOBULIN RATIO 0.95 (1.00-1.93); ALKALINE PHOSPHATASE 114 U/L (45-117); ALT/SGPT 14 U/L (12-78); ANION GAP 7 MEQ/L (8-16); AST/SGOT 14 U/L (7-37); BILIRUBIN,TOTAL 0.2 MG/DL (0.2-1.0); BLOOD UREA NITROGEN 14 MG/DL (7-18); CALCIUM LEVEL 8.7 MG/DL (8.8-10.2); CARBON DIOXIDE LEVEL 30 MEQ/L (21-32); CHLORIDE LEVEL 104 MEQ/L (98-107); CREATININE FOR GFR 0.79 MG/DL (0.55-1.30); FREE T4 0.91 NG/DL (0.76-1.46); GLOMERULAR FILTRATION RATE > 60.0 (>39); GLUCOSE, FASTING 125 MG/DL (70-100); POTASSIUM SERUM 3.5 MEQ/L (3.5-5.1); SODIUM LEVEL 141 MEQ/L (136-145); TOTAL PROTEIN 7.6 GM/DL (6.4-8.2)
== END ==
LOC: M SFHCADAM 15:23
DX: I10 Essential (primary) hypertension (principal); F03.91 Unspecified dementia, unspecified severity, with behavioral disturbance; D64.9 Anemia, unspecified
CPT/HCPCS: 84443

== ENCOUNTER → 2018-12-03 | Outpatient (REF) | payer MEDICARE ==
[~2018-12-03] MED LIST changes: -AMLO10TA2 PO; +AMLO10TA5 PO
[2018-12-03 12:42] LABS: HEMOGLOBIN 12.3 g/dl (12.0-15.5); MEAN CORPUSCULAR HEMOGLOBIN 29.9 pg (27.0-33.0); MEAN CORPUSCULAR HGB CONC 32.4 g/dl (32.0-36.5); MEAN CORPUSCULAR VOLUME 92.5 fl (80.0-96.0); PLATELET COUNT, AUTOMATED 228 10^3/uL (150-450); RED BLOOD COUNT 4.11 10^6/uL (4.00-5.40); WHITE BLOOD COUNT 6.5 10^3/uL (4.0-10.0)
[2018-12-03 13:02] LABS: ALBUMIN 3.7 GM/DL (3.2-5.2); ALT/SGPT 12 U/L (12-78); BILIRUBIN,TOTAL 0.4 MG/DL (0.2-1.0); BLOOD UREA NITROGEN 17 MG/DL (7-18); CALCIUM LEVEL 8.9 MG/DL (8.8-10.2); CARBON DIOXIDE LEVEL 29 MEQ/L (21-32); CHLORIDE LEVEL 105 MEQ/L (98-107); CREATININE FOR GFR 0.83 MG/DL (0.55-1.30); GLOMERULAR FILTRATION RATE > 60.0 (>32); GLUCOSE, FASTING 104 MG/DL (70-100); POTASSIUM SERUM 4.4 MEQ/L (3.5-5.1); SODIUM LEVEL 140 MEQ/L (136-145); TOTAL PROTEIN 7.2 GM/DL (6.4-8.2)
[2018-12-03 13:09] LABS: TOTAL 25(OH) VITAMIN D 19.7 NG/ML (30.0-100.0)
== END ==
LOC: M SFHCADAM 09:44
PROVIDERS: ATTEND Physician Assistant
DX: E55.9 Vitamin D deficiency, unspecified (principal); I10 Essential (primary) hypertension; K64.9 Unspecified hemorrhoids; R63.4 Abnormal weight loss
CPT/HCPCS: 80053; 82306; 85027; G0463

== ENCOUNTER → 2019-11-25 | Outpatient (REF) | payer MEDICARE ==
[~2019-11-25] MED LIST changes: +CEFD300C41 PO; -CEFD300CAP PO
[2019-11-25 13:12] LABS: HEMATOCRIT 38.1 % (36.0-47.0); HEMOGLOBIN 12.2 g/dl (12.0-15.5); MEAN CORPUSCULAR HEMOGLOBIN 30.3 pg (27.0-33.0); MEAN CORPUSCULAR VOLUME 94.5 fl (80.0-96.0); PLATELET COUNT, AUTOMATED 179 10^3/uL (150-450); RED BLOOD COUNT 4.03 10^6/uL (4.00-5.40); WHITE BLOOD COUNT 7.2 10^3/uL (4.0-10.0)
[2019-11-25 13:22] LABS: ALBUMIN 4.4 GM/DL (3.2-5.2); ALT/SGPT 20 U/L (12-78); BILIRUBIN,TOTAL 0.3 MG/DL (0.2-1.0); BLOOD UREA NITROGEN 19 MG/DL (7-18); CALCIUM LEVEL 9.6 MG/DL (8.8-10.2); CARBON DIOXIDE LEVEL 30 MEQ/L (21-32); CHLORIDE LEVEL 104 MEQ/L (98-107); CREATININE FOR GFR 0.88 MG/DL (0.55-1.30); FREE T4 1.03 NG/DL (0.76-1.46); GLOMERULAR FILTRATION RATE > 60.0 (>32); GLUCOSE, FASTING 86 MG/DL (70-100); POTASSIUM SERUM 4.1 MEQ/L (3.5-5.1); SODIUM LEVEL 139 MEQ/L (136-145); TOTAL PROTEIN 7.7 GM/DL (6.4-8.2)
== END ==
LOC: M SFHCADAM 09:38
PROVIDERS: ATTEND Physician Assistant
DX: I10 Essential (primary) hypertension (principal); D64.9 Anemia, unspecified; F03.90 Unspecified dementia, unspecified severity, without behavioral disturbance, psychotic disturbance, mood disturbance, and anxiety
CPT/HCPCS: 80053; 84439; 84443; 85027; G0463

== ENCOUNTER → 2020-12-14 | Outpatient (REF) | payer MEDICARE ==
[~2020-12-14] MED LIST changes: -AMLO10TA5 PO; +AMLO1TAB25 PO
[2020-12-14 17:20] LABS: HEMATOCRIT 38.9 % (36.0-47.0); MEAN CORPUSCULAR HEMOGLOBIN 29.7 pg (27.0-33.0); MEAN CORPUSCULAR HGB CONC 30.8 g/dl (32.0-36.5); MEAN CORPUSCULAR VOLUME 96.3 fl (80.0-96.0); PLATELET COUNT, AUTOMATED 175 10^3/uL (150-450); RED BLOOD COUNT 4.04 10^6/uL (4.00-5.40); WHITE BLOOD COUNT 7.8 10^3/uL (4.0-10.0)
[2020-12-14 17:41] LABS: ALBUMIN 3.7 GM/DL (3.2-5.2); ALT/SGPT 18 U/L (12-78); BILIRUBIN,TOTAL 0.2 MG/DL (0.2-1.0); BLOOD UREA NITROGEN 20 MG/DL (7-18); CARBON DIOXIDE LEVEL 29 MEQ/L (21-32); CHLORIDE LEVEL 104 MEQ/L (98-107); CREATININE FOR GFR 0.74 MG/DL (0.55-1.30); GLOMERULAR FILTRATION RATE > 60.0 (>32); GLUCOSE, FASTING 81 MG/DL (70-100); POTASSIUM SERUM 4.2 MEQ/L (3.5-5.1); SODIUM LEVEL 140 MEQ/L (136-145); TOTAL PROTEIN 7.2 GM/DL (6.4-8.2)
== END ==
LOC: M SFHCADAM 12:13
PROVIDERS: ATTEND Physician Assistant
DX: F03.90 Unspecified dementia, unspecified severity, without behavioral disturbance, psychotic disturbance, mood disturbance, and anxiety (principal); D64.9 Anemia, unspecified; I10 Essential (primary) hypertension
CPT/HCPCS: 80053; 85027; G0463

== ENCOUNTER → 2020-12-28 | Outpatient (CLI) | payer MEDICARE ==
--- NOTE | 2020-12-28 12:28 | REP ---
INDICATION: PAIN IN LEFT ANKLE AND JOINTS OF LEFT FOOT, PAIN IN LEFT TOE COMPARISON: None. TECHNIQUE: AP, lateral, bilateral oblique views left foot. FINDINGS: Advanced osteopenia and degenerative changes noted throughout the ankle and foot. There appears to be a nondisplaced fracture involving the 1st toe proximal phalanx with overlying soft tissue swelling. IMPRESSION: Advanced osteopenia and generalized degenerative changes. Nondisplaced fracture involving the 1st toe proximal phalanx.. <Electronically signed by Buck Figueroa > 12/28/20 [id number]
== END ==
LOC: M ADAMS 11:55
PROVIDERS: ATTEND Nurse Practitioner Family
DX: S92.415A Nondisplaced fracture of proximal phalanx of left great toe, initial encounter for closed fracture (principal); M85.872 Other specified disorders of bone density and structure, left ankle and foot; M25.572 Pain in left ankle and joints of left foot; M79.675 Pain in left toe(s); X58.XXXA Exposure to other specified factors, initial encounter; Y92.9 Unspecified place or not applicable; Y99.9 Unspecified external cause status

== ENCOUNTER 2022-07-12 11:05 | Inpatient (IN) | payer MEDICARE, MEDICAID ==
[~2022-07-12] VITALS: Ht 165.1 cm; Wt 40.5 kg
[2022-07-12] MEDS: amLODIPine 5 MG TAB PO SCH (09:00)
[2022-07-12 14:48] LABS: BASO % 0.4 % (0.0-1.0); EOS % 0.2 % (0.0-3.0); HEMATOCRIT 32.7 % (36.0-47.0); HEMOGLOBIN 10.3 g/dl (12.0-15.5); LYMPH # 1.3 10^3/uL (1.5-5.0); LYMPH % 11.7 % (24.0-44.0); MEAN CORPUSCULAR HEMOGLOBIN 30.1 pg (27.0-33.0); MEAN CORPUSCULAR HGB CONC 31.5 g/dl (32.0-36.5); MEAN CORPUSCULAR VOLUME 95.6 fl (80.0-96.0); MONO # 0.7 10^3/uL (0.0-0.8); MONO % 6.2 % (2.0-8.0); NEUTROPHILS % 81.2 % (36.0-66.0); PLATELET COUNT, AUTOMATED 381 10^3/uL (150-450); RED BLOOD COUNT 3.42 10^6/uL (4.00-5.40); WHITE BLOOD COUNT 11.1 10^3/uL (4.0-10.0)
[2022-07-12 15:14] LABS: ERYTHROCYTE SEDIMENTATION RATE 61 mm/hr (0-30)
[2022-07-12 15:39] LABS: BLOOD UREA NITROGEN 32 MG/DL (7-18); C REACTIVE PROTEIN QUANTITATIV 5.63 MG/DL (0.00-0.30); CALCIUM LEVEL 8.6 MG/DL (8.8-10.2); CARBON DIOXIDE LEVEL 27 MEQ/L (21-32); CHLORIDE LEVEL 117 MEQ/L (98-107); CREATININE FOR GFR 0.67 MG/DL (0.55-1.30); GLOMERULAR FILTRATION RATE > 60.0 (>32); GLUCOSE, FASTING 100 MG/DL (70-100); POTASSIUM SERUM 4.7 MEQ/L (3.5-5.1); SODIUM LEVEL 149 MEQ/L (136-145)
[2022-07-12 15:42] LABS: RSV AMPLIFICATION NEGATIVE (NEGATIVE)
[2022-07-12] MEDS ORDERED: VANCOMYCIN HCL 1,000 MG in IV FLUID PLACE HOLDER 1 EA IV ONE (15:45)
[2022-07-12] MEDS ORDERED: VANCOMYCIN HCL 1,000 MG, VIAL MATE ADAPTER 1 EACH in D5W 250 ML IV ONE (16:00)
[2022-07-12] MEDS ORDERED: AMLO1TAB24 PO (17:00)
[2022-07-12] MEDS ORDERED: HOME MED LIST COMPLETE! XX SCH (17:00)
[2022-07-12] MEDS ORDERED: ALEN70TA82 PO (17:00)
[2022-07-12] MEDS ORDERED: MAALOX 30 ML SUSP *UDC PO PRN (17:20)
[2022-07-12] MEDS ORDERED: VANCOMYCIN HCL 1,000 MG, VIAL MATE ADAPTER 1 EACH in NS 250 ML IV SCH (17:20)
[2022-07-12] MEDS ORDERED: MOM 30ML SUSPENSION UDC PO PRN (17:20)
[2022-07-12] MEDS: D5W/0.45% SODIUM CHLORIDE 1,000 ML IV SCH (18:19)
[2022-07-12] MEDS ORDERED: PIPERACILLIN/TAZOBACTAM SOD 3.375 GM in D5W MINI-BAG PLUS 50 ML IV SCH (19:00)
[2022-07-12 19:15] LABS: FERRITIN 317 NG/ML (8-252); IRON (FE) 23 UG/DL (50-170); PERCENT SATURATION 15.3 % (13.2-45.0); TOTAL IRON BINDING CAPACITY 150 UG/DL (250-450)
[2022-07-12 19:44] LABS: VITAMIN B12 LEVEL 523 PG/ML (247-911)
[2022-07-12 20:30] VITALS: BP 124/60
[2022-07-12 20:55] LABS: C REACTIVE PROTEIN QUANTITATIV 5.77 MG/DL (0.00-0.30)
[2022-07-12] MEDS: DOCUSATE SODIUM 100MG CAPSULE PO SCH (21:00)
[2022-07-12 21:11] LABS: BLOOD UREA NITROGEN 31 MG/DL (7-18); CALCIUM LEVEL 8.3 MG/DL (8.8-10.2); CARBON DIOXIDE LEVEL 27 MEQ/L (21-32); CHLORIDE LEVEL 116 MEQ/L (98-107); CREATININE FOR GFR 0.72 MG/DL (0.55-1.30); GLOMERULAR FILTRATION RATE > 60.0 (>32); GLUCOSE, FASTING 137 MG/DL (70-100); POTASSIUM SERUM 4.2 MEQ/L (3.5-5.1); SODIUM LEVEL 149 MEQ/L (136-145)
[2022-07-12 22:00] VITALS: BP 126/64
[2022-07-12] MEDS: HEPARIN SOD (PORCINE) 5000UNITS/ML 1ML VIAL/SYRINGE SC SCH (23:09)
[2022-07-12] MEDS: PIPERACILLIN/TAZOBACTAM SOD 3.375 GM in D5W MINI-BAG PLUS 50 ML IV SCH (23:09)
[2022-07-13] MEDS: VANCOMYCIN HCL 500 MG in D5W MINI-BAG PLUS 100 ML IV SCH ×2 (00:35→12:57)
[2022-07-13] MEDS: SANTYL OINT 30GM TOP SCH ×2 (00:36→22:44)
[2022-07-13] MEDS: PIPERACILLIN/TAZOBACTAM SOD 3.375 GM in D5W MINI-BAG PLUS 50 ML IV SCH ×4 (05:24→22:57)
[2022-07-13 06:00] VITALS: BP 137/53
[2022-07-13 06:39] LABS: BASO % 0.4 % (0.0-1.0); EOS # 0.1 10^3/uL (0.0-0.5); HEMATOCRIT 32.9 % (36.0-47.0); HEMOGLOBIN 10.2 g/dl (12.0-15.5); LYMPH # 1.3 10^3/uL (1.5-5.0); LYMPH % 13.4 % (24.0-44.0); MEAN CORPUSCULAR HEMOGLOBIN 29.4 pg (27.0-33.0); MEAN CORPUSCULAR VOLUME 94.8 fl (80.0-96.0); MONO # 0.6 10^3/uL (0.0-0.8); MONO % 6.3 % (2.0-8.0); NEUTROPHILS # 7.4 10^3/uL (1.5-8.5); NEUTROPHILS % 78.5 % (36.0-66.0); PLATELET COUNT, AUTOMATED 370 10^3/uL (150-450); RED BLOOD COUNT 3.47 10^6/uL (4.00-5.40); WHITE BLOOD COUNT 9.4 10^3/uL (4.0-10.0)
[2022-07-13 07:30] LABS: BLOOD UREA NITROGEN 29 MG/DL (7-18); CALCIUM LEVEL 8.4 MG/DL (8.8-10.2); CARBON DIOXIDE LEVEL 26 MEQ/L (21-32); CHLORIDE LEVEL 115 MEQ/L (98-107); CREATININE FOR GFR 0.77 MG/DL (0.55-1.30); GLOMERULAR FILTRATION RATE > 60.0 (>32); GLUCOSE, FASTING 125 MG/DL (70-100); MAGNESIUM LEVEL 2.5 MG/DL (1.8-2.4); POTASSIUM SERUM 3.9 MEQ/L (3.5-5.1); SODIUM LEVEL 147 MEQ/L (136-145)
[2022-07-13] MEDS: DOCUSATE SODIUM 100MG CAPSULE PO SCH ×2 (09:00→21:00)
[2022-07-13] MEDS ORDERED: PREVNAR-20 VACCINE 0.5ML SYRINGE IM.IMMUN ONE (09:00)
[2022-07-13] MEDS: HEPARIN SOD (PORCINE) 5000UNITS/ML 1ML VIAL/SYRINGE SC SCH ×2 (09:56→22:07)
[2022-07-13] MEDS: amLODIPine 5 MG TAB PO SCH (09:59)
[2022-07-13] MEDS: D5W/0.45% SODIUM CHLORIDE 1,000 ML IV SCH (10:52)
[2022-07-13 11:10] LABS: C REACTIVE PROTEIN QUANTITATIV 6.42 MG/DL (0.00-0.30)
[2022-07-13 15:16] VITALS: BP 126/47
[2022-07-13] MEDS: ACETAMINOPHEN TAB 650MG DOSE (2X325MG) PO PRN (22:43)
[2022-07-14] MEDS: VANCOMYCIN HCL 500 MG in D5W MINI-BAG PLUS 100 ML IV SCH (00:21)
[2022-07-14 05:07] LABS: FOLATE 10.2 ng/mL (>3.0)
[2022-07-14] MEDS: D5W/0.45% SODIUM CHLORIDE 1,000 ML IV SCH (05:24)
[2022-07-14] MEDS: PIPERACILLIN/TAZOBACTAM SOD 3.375 GM in D5W MINI-BAG PLUS 50 ML IV SCH (05:24)
[2022-07-14 05:58] VITALS: BP 119/68
[2022-07-14 06:00] LABS: BASO % 0.5 % (0.0-1.0); EOS # 0.1 10^3/uL (0.0-0.5); EOS % 1.3 % (0.0-3.0); HEMATOCRIT 32.4 % (36.0-47.0); HEMOGLOBIN 9.9 g/dl (12.0-15.5); LYMPH # 1.3 10^3/uL (1.5-5.0); LYMPH % 16.3 % (24.0-44.0); MEAN CORPUSCULAR HGB CONC 30.6 g/dl (32.0-36.5); MONO # 0.5 10^3/uL (0.0-0.8); MONO % 6.9 % (2.0-8.0); NEUTROPHILS # 5.8 10^3/uL (1.5-8.5); NEUTROPHILS % 74.6 % (36.0-66.0); PLATELET COUNT, AUTOMATED 335 10^3/uL (150-450); RED BLOOD COUNT 3.41 10^6/uL (4.00-5.40); WHITE BLOOD COUNT 7.7 10^3/uL (4.0-10.0)
[2022-07-14 06:28] LABS: BLOOD UREA NITROGEN 19 MG/DL (7-18); C REACTIVE PROTEIN QUANTITATIV 4.25 MG/DL (0.00-0.30); CALCIUM LEVEL 7.9 MG/DL (8.8-10.2); CARBON DIOXIDE LEVEL 29 MEQ/L (21-32); CHLORIDE LEVEL 112 MEQ/L (98-107); CREATININE FOR GFR 0.72 MG/DL (0.55-1.30); GLOMERULAR FILTRATION RATE > 60.0 (>32); GLUCOSE, FASTING 115 MG/DL (70-100); MAGNESIUM LEVEL 2.2 MG/DL (1.8-2.4); POTASSIUM SERUM 3.7 MEQ/L (3.5-5.1); SODIUM LEVEL 145 MEQ/L (136-145)
[2022-07-14] MEDS: DOCUSATE SODIUM 100MG CAPSULE PO SCH (09:00)
[2022-07-14] MEDS: ACETAMINOPHEN TAB 650MG DOSE (2X325MG) PO PRN (09:35)
[2022-07-14] MEDS: LevoFLOXacin 750 MG TABLET PO SCH (09:35)
[2022-07-14 09:36] VITALS: BP 119/68
[2022-07-14] MEDS: HEPARIN SOD (PORCINE) 5000UNITS/ML 1ML VIAL/SYRINGE SC SCH (09:36)
[2022-07-14] MEDS: amLODIPine 5 MG TAB PO SCH (09:36)
[2022-07-14] MEDS ORDERED: SCOPOLAMINE 1MG TRANSDERMAL PATCH TOP PRN (12:00)
[2022-07-14] MEDS: SANTYL OINT 30GM TOP SCH (21:06)
[2022-07-15] MEDS: SANTYL OINT 30GM TOP SCH (21:29)
[2022-07-16] MEDS: LevoFLOXacin 750 MG TABLET PO SCH (05:21)
[2022-07-16] MEDS: LORazepam 1 MG TAB PO PRN (20:33)
[2022-07-18] MEDS: LevoFLOXacin 750 MG TABLET PO SCH (05:11)
[2022-07-18] MEDS: LORazepam 1 MG TAB PO PRN (21:51)
[2022-07-19] MEDS: LORazepam 1 MG TAB PO PRN ×3 (10:51→22:19)
[2022-07-19] MEDS ORDERED: COVID-19 VAC, BV (MODERNA)/PF 50 MCG/0.5 ML VIAL (EUA) IM.IMMUN ONE (13:00)
[2022-07-19] MEDS: MORPHINE 10MG/0.5ML ORAL CONCENTRATE SOLUTION U/D SL PRN ×2 (14:39→22:19)
[2022-07-20] MEDS: LevoFLOXacin 750 MG TABLET PO SCH (05:26)
[2022-07-20] MEDS ORDERED: MYLASSUD PO (11:13)
[2022-07-20] MEDS ORDERED: ACET1TAB55 PO (11:13)
[2022-07-20] MEDS ORDERED: ATIV1TAB7 PO (11:13)
[2022-07-20] MEDS ORDERED: MORP1SOL SL (11:13)
[2022-07-20] MEDS ORDERED: TRAN1DIS4 TOP (11:13)
[2022-07-20] MEDS: LORazepam 1 MG TAB PO PRN (12:25)
== END 2022-07-20 12:25 | DRG 592 ==
LOC: M ED 11:05 → M ED INP 17:16 → M MS5PR 20:31
PROVIDERS: ADMIT Internal Medicine; ATTEND Internal Medicine
DX: L89.214 Pressure ulcer of right hip, stage 4 (principal); E43 Unspecified severe protein-calorie malnutrition; E87.0 Hyperosmolality and hypernatremia; Z68.1 Body mass index [BMI] 19.9 or less, adult; F03.90 Unspecified dementia, unspecified severity, without behavioral disturbance, psychotic disturbance, mood disturbance, and anxiety; I10 Essential (primary) hypertension; Z86.73 Personal history of transient ischemic attack (TIA), and cerebral infarction without residual deficits; I70.0 Atherosclerosis of aorta; D64.9 Anemia, unspecified; E55.9 Vitamin D deficiency, unspecified; Z66 Do not resuscitate; Z90.49 Acquired absence of other specified parts of digestive tract; Z87.891 Personal history of nicotine dependence; Z79.899 Other long term (current) drug therapy; Z20.822 Contact with and (suspected) exposure to COVID-19; R26.89 Other abnormalities of gait and mobility; Z74.1 Need for assistance with personal care; R29.6 Repeated falls; Z74.01 Bed confinement status; D72.829 Elevated white blood cell count, unspecified; S92.901A Unspecified fracture of right foot, initial encounter for closed fracture; X58.XXXA Exposure to other specified factors, initial encounter; Y92.9 Unspecified place or not applicable